=== PATIENT | male | born 1980 | race Caucasian/White ===

== ENCOUNTER 2017-01-20 19:22 | Emergency (ER) | payer SELFPAY ==
[2017-01-20] MEDS ORDERED: ONDANSETRON 4 MG TAB.RAPDIS PO ONE (20:01)
--- NOTE | 2017-01-20 20:15 | ERNOTE ---
Abdominal HPI - Narrative Date of Service: 01/20/17 - General Time Seen by Provider: 01/20/17 19:46 Source: patient Exam Limitations: no limitations - Immun/Allergies/Home Medications Immunizatons: IMMUNIZATION HX Immunizations Up to Date Yes Allergies/Adverse Reactions: Allergies aspirin Allergy (Intermediate, Verified 01/20/17 19:37) - History of Present Illness Narrative: Pt. comes in with c/o nausea and diarrhea for 16 hours. Pt. denies any abdominal pain, fevers, vomiting, intolerance of foods or fluids, SOB, CP, Alleviating or aggravating factors or prehospital treatment. Review of Systems - Review of Systems Constitutional: Present: no symptoms reported. Absent: recent illness, fever, chills, weakness, fatigue, malaise EYE: Present: no symptoms reported ENT: Present: no symptoms reported Respiratory: Present: no symptoms reported. Absent: shortness of breath, cough , wheezing Cardiology: Present: no symptoms reported. Absent: chest pain, palpitations, edema Gastrointestinal/Abdominal: Present: nausea, diarrhea. Absent: vomiting, constipation, abdominal pain, eating less, drinking less Genitourinary: Present: no symptoms reported Musculoskeletal: Present: no symptoms reported. Absent: back pain, neck pain, joint pain Skin: Present: no symptoms reported Neurological: Present: no symptoms reported. Absent: headache, dizziness/light- headedness, numbness, tingling All Other Systems: All systems neg except as marked - Patient's Past Medical History Patient History - Medical: GERD Patient History - Cardiac/Respiratory: No pertinent hx Patient History - Cancer: No Hx of Cancer Patient History - Surgical Procedures: Other Patient History - Other: None - Social History Living Situations: spouse Abuse History: No History of abuse Psych History: No pertinent hx Smoking Status: Former smoker Have you smoked in the past 12 months: Yes - e-cigs Do you dip or chew tobacco: No Patient requests Smoking Cessation Consult: No Initiate information on Smoking Cessation: No Alcohol Use: occasionally Drug Use: none - Immunizations Immunizations Up to Date: Yes Physical Exam - Physical Exam General Appearance: Present: wd/wn, alert, no apparent distress Eye Exam: Normal inspection: bilateral, PERRL: bilateral, EOMI: bilateral Ears, Nose, Throat: Present: normal ENT inspection Neck: Present: normal inspection Respiratory: Present: no respiratory distress, normal breath sounds, no accessory muscle use, chest nontender, lungs clear Cardiovascular/Chest: Present: regular rate, rhythm, no murmur, normal peripheral pulses Gastrointestinal/Abdominal: Present: normal bowel sounds, nontender, nondistended, soft, no organomegaly Back Exam: Present: normal inspection Extremity Exam: Present: normal inspection, non-tender, normal range of motion, no edema Neurological Exam: Present: alert, oriented, normal mood/affect, no motor/ sensory deficits. Absent: agricultural technical officer II-XII nml as tested, normal cerebellar test Skin Exam: Present: normal color, warm/dry. Absent: pallor, skin rash ED Progress - Vital Signs Patient's Vital Signs:: I have reviewed the patient's vital signs. Vital Signs: Vital Signs 01/20/17 19:29 Temperature 36.8 C Pulse Rate 75 Respiratory 14 Rate Blood Pressure 123/75 O2 Sat by Pulse 97 Oximetry Departure - Departure Clinical Impression: Viral gastroenteritis Disposition: Home self-care Condition: Good Instructions: Viral Gastroenteritis, Adult, [id number] Additional Instructions: Please follow up with primary provider in 2-3 days if no improvement.
[2017-01-20] MEDS ORDERED: ONDANSETRON HCL 8 MG TABLET ONE (20:17)
[2017-01-20] MEDS ORDERED: ONDANSETRON 4 MG TAB.RAPDIS ONE (20:18)
[2017-01-20 20:23] VITALS: BP 119/81
== END 2017-01-20 20:26 | disposition home or self-care (01) ==
LOC: ER 19:22
DX: A08.4 Viral intestinal infection, unspecified (principal)

== ENCOUNTER 2017-03-31 16:01 | Emergency (ER) | payer SELFPAY ==
[2017-03-31 16:11] VITALS: BP 142/79
--- NOTE | 2017-03-31 16:30 | ERNOTE ---
Medical Problem HPI - Narrative Date of Service: 03/31/17 - General Chief Complaint: Nausea/Vomiting Time Seen by Provider: 03/31/17 16:20 Source: patient, RN notes reviewed Exam Limitations: no limitations - Immun/Allergies/Home Medications Immunizations: IMMUNIZATION HX Immunizations Up to Date Yes History of Influenza Vaccine No Hx Pneumococcal Vaccination No Allergies/Adverse Reactions: Allergies aspirin Allergy (Intermediate, Verified 03/31/17 16:11) Home Medications: HOME MEDICATIONS NK [No Home Medication] 03/31/17 [Last Taken Unknown] - History of Present History Narrative: Aretha is a 36-year-old male ambulatory to the emergency department for nausea that began 2 days ago. He reports feeling like he could vomit but has not actually done so. He states that he is able to tolerate oral intake. He also reports feeling as though he is going to have diarrhea, but has not. He passed a formed stool today. He denies any sick contacts. He reports that he needs a work excuse because he works at [employer] around food. Review of Systems - Review of Systems Constitutional: Present: fatigue, malaise. Absent: fever, chills EYE: Present: no symptoms reported ENT: Present: no symptoms reported Respiratory: Absent: shortness of breath, cough Cardiology: Absent: chest pain, syncope Gastrointestinal/Abdominal: Present: nausea. Absent: vomiting, diarrhea, abdominal pain, eating less, drinking less Genitourinary: Absent: dysuria, hematuria, decreased urinary output Musculoskeletal: Absent: muscle pain, joint pain Skin: Absent: rash, lesions Neurological: Absent: headache, dizziness/light-headedness Endocrine: Present: no symptoms reported Hematologic/Lymphatic: Present: no symptoms reported Psych: Present: no symptoms reported - Patient's Past Medical History Patient History - Medical: GERD Patient History - Cardiac/Respiratory: No pertinent hx Patient History - Cancer: No Hx of Cancer Patient History - Surgical Procedures: Other Patient History - Other: None - Social History Living Situations: home Abuse History: No History of abuse Psych History: No pertinent hx Smoking Status: Smoker, status unknown Have you smoked in the past 12 months: No Do you dip or chew tobacco: No Alcohol Use: occasionally Drug Use: none - Immunizations Immunizations Up to Date: Yes Hx Pneumococcal Vaccination: No History of Influenza Vaccine: No Physical Exam - Physical Exam General Appearance: Present: wd/wn, alert, no apparent distress, other - Poor hygiene Neck: Present: normal inspection, nontender, supple Respiratory: Present: no respiratory distress, normal breath sounds, no accessory muscle use, lungs clear Cardiovascular/Chest: Present: regular rate, rhythm, no murmur, normal peripheral pulses Gastrointestinal/Abdominal: Present: normal bowel sounds, nontender, nondistended, soft Extremity Exam: Present: normal inspection, normal range of motion Neurological Exam: Present: alert, oriented, normal mood/affect, no motor/ sensory deficits Skin Exam: Present: normal color, warm/dry ED Progress - Vital Signs Patient's Vital Signs:: I have reviewed the patient's vital signs. Vital Signs: Vital Signs 03/31/17 16:06 Temperature 37.1 C Pulse Rate 83 Respiratory 16 Rate Blood Pressure 142/79 O2 Sat by Pulse 98 Oximetry - Progress/Reassessment Chief Complaint: Nausea/Vomiting Progress:: Unchanged Plan - Plan Plan: Patient is not having any pain and he is tolerating oral intake without incident. Workup deferred for now. Discussed returning if symptoms worsen. Patient in agreement with plan. Departure - Departure Clinical Impression: Nausea alone Disposition: Home self-care Condition: Stable Instructions: Nausea, Adult, [id number], Form - Excuse from Work, School, or Physical Activity
== END 2017-03-31 16:33 | disposition home or self-care (01) ==
LOC: ER 16:01
DX: R11.0 Nausea (principal)

== ENCOUNTER 2017-04-09 18:17 | Emergency (ER) | payer SELFPAY ==
--- NOTE | 2017-04-09 20:33 | ERNOTE ---
Lower Extremity HPI - Narrative Date of Service: 04/09/17 - General Lower Extremities Pain: foot: right Time Seen by Provider: 04/09/17 20:07 Source: patient, RN notes reviewed Exam Limitations: no limitations - Immun/Allergies/Home Medications Immunizations: IMMUNIZATION HX Immunizations Up to Date Yes History of Influenza Vaccine No Hx Pneumococcal Vaccination No Allergies/Adverse Reactions: Allergies Allergy/AdvReac Type Severity Reaction Status Date / Time aspirin Allergy Intermediate Verified 04/09/17 18:51 Home Medications: HOME MEDICATIONS NK [No Home Medication] 03/31/17 [Last Taken Unknown] - History of Present Illness Narrative: 36 y/o male ambulatory to the ED for a foot injury that occurred yesterday morning. He stepped wrong and twisted his foot while going down his steps on his way to work. He went to work, but was then sent home because he was having trouble walking. He reports that he knows his foot is not broken and will be fine, but he has to have a work excuse. He has not been taking anything for pain. Date (Duration): 04/08/17 Time (Timing): 05:30 Location of Incident: home Method of Injury: Reports: twisted Associated Symptoms: Denies: unable to bear weight, snapping, popping sensation Other Injuries: Reports: none Subsequent Symptoms: Denies: sensory loss, numbness, motor loss Prior Treament: Reports: recently seen. Denies: similar symptoms before Review of Systems - Review of Systems Constitutional: Present: recent illness. Absent: fever, chills, malaise EYE: Present: no symptoms reported ENT: Present: no symptoms reported Respiratory: Present: no symptoms reported Cardiology: Absent: chest pain, syncope, edema Gastrointestinal/Abdominal: Present: no symptoms reported Genitourinary: Present: no symptoms reported Musculoskeletal: Absent: joint pain, joint swelling Skin: Absent: rash, lesions, lumps, change in color Neurological: Absent: weakness, numbness, tingling Endocrine: Present: no symptoms reported Hematologic/Lymphatic: Absent: easy bruising, easy bleeding Psych: Present: no symptoms reported - Patient's Past Medical History Patient History - Medical: GERD, Other Patient History - Cardiac/Respiratory: No pertinent hx Patient History - Cancer: No Hx of Cancer Patient History - Surgical Procedures: Other Patient History - Other: None - Social History Living Situations: spouse Abuse History: No History of abuse Psych History: No pertinent hx Smoking Status: Current every day smoker Have you smoked in the past 12 months: Yes - vapor cig Do you dip or chew tobacco: No Alcohol Use: occasionally Drug Use: none - Immunizations Immunizations Up to Date: Yes Hx Pneumococcal Vaccination: No History of Influenza Vaccine: No Physical Exam - Physical Exam General Appearance: Present: wd/wn, alert, no apparent distress, other - Disheveled Respiratory: Present: no respiratory distress, no accessory muscle use Cardiovascular/Chest: Present: normal peripheral pulses Peripheral Pulses: N=norm/S=strong/W=weak/B=bound/A=absent: Dorsalis-pedis (R): Strong, Dorsalis-pedis (L): Strong Extremity Exam: Present: normal range of motion, no edema, other - Tenderness with palpation of right lateral foot, no ecchymosis, no deformity, no edema. Absent: pedal edema, joint redness, joint swelling Neurological Exam: Present: alert, oriented, normal mood/affect, no motor/ sensory deficits Skin Exam: Present: normal color, warm/dry ED Progress - Vital Signs Patient's Vital Signs:: I have reviewed the patient's vital signs. Vital Signs: Vital Signs 04/09/17 04/09/17 18:45 19:31 Temperature 37.0 C 36.9 C Pulse Rate 84 75 Respiratory 16 16 Rate Blood Pressure 132/75 122/74 O2 Sat by Pulse 99 99 Oximetry - Progress/Reassessment Chief Complaint: Foot Injury/Pain Progress:: Unchanged Plan - Plan Plan: MARIANA wrap applied to right foot and work excuse given Departure Clinical Impression: Right foot sprain Qualifiers: Encounter type: initial encounter Qualified Code(s): S93.601A - Unspecified sprain of right foot, initial encounter - Departure Disposition: Home self-care Condition: Good Instructions: Foot Sprain, Form - Excuse from Work, School, or Physical Activity
[2017-04-09 21:17] VITALS: BP 139/72
== END 2017-04-09 20:30 | disposition home or self-care (01) ==
LOC: ER 18:17
DX: S93.601A Unspecified sprain of right foot, initial encounter (principal); F17.290 Nicotine dependence, other tobacco product, uncomplicated; X50.1XXA Overexertion from prolonged static or awkward postures, initial encounter; Y93.01 Activity, walking, marching and hiking

== ENCOUNTER 2017-05-07 13:15 | Emergency (ER) | payer MEDICAID ==
[2017-05-07 13:23] VITALS: BP 142/80
--- NOTE | 2017-05-07 14:33 | ERNOTE ---
Back Pain ER HPI Date of Service: 05/07/17 Presenting Symptoms: injury/pain to back Time Seen by Provider: 05/07/17 14:03 Source: patient Exam Limitations: no limitations Immunizations: IMMUNIZATION HX Immunizations Up to Date Yes History of Influenza Vaccine No Hx Pneumococcal Vaccination No Allergies/Adverse Reactions: Allergies aspirin Allergy (Intermediate, Verified 05/07/17 13:23) Home Medications: HOME MEDICATIONS Cyclobenzaprine HCl [Flexeril] 10 mg PO TID PRN #30 tab 05/07/17 [Last Taken Unknown] Ibuprofen [Motrin] 800 mg PO .Q8H PRN #30 tablet 05/07/17 [Last Taken Unknown] - Pain Score Pain Score #1 Pain Score: 5 Narrative: 36yo, M, presents to ER for evaluation of back pain. Notes the back pain started approx 5-7 days ago, while bent over attempting to repair a hole in his tire and while replacing the tire on his car. Describes pain as stabbing pain in his mid back that radiates to a "burning pain" to his lower back. Denies any numbness or tingling, or loss of bowel or bladder. Does report dx of "multiple compression fractures" to back last year. Date (Duration): 05/03/17 Timing: Reports: constant Location of pain: Reports: mid back Activities at Onset: Reports: activity Possible Precipitating Factor: Reports: turning/bending Modifying Factors - (Improves): Reports: other - sidelying position Modifying Factors - (Worsens): Reports: other - standing, prone position Associated Symptoms: Denies: fever/chills, constipation/incontinence, nausea/ vomiting, problems urinating, difficulty walking, lightheadedness, numbess/ weakness in legs Review of Systems - Review of Systems Constitutional: Absent: fever, chills, fatigue, malaise Gastrointestinal/Abdominal: Absent: nausea, vomiting, diarrhea, abdominal pain Genitourinary: Absent: frequency, pain, dysuria, hematuria Musculoskeletal: Present: back pain, muscle stiffness - mid-lower back Skin: Absent: rash Neurological: Absent: weakness, numbness, tingling - Patient's Past Medical History Patient History - Medical: GERD, Other Patient History - Cardiac/Respiratory: Pneumonia Patient History - Cancer: No Hx of Cancer Patient History - Surgical Procedures: Other Patient History - Other: None - Social History Living Situations: home Abuse History: No History of abuse Psych History: No pertinent hx Smoking Status: Current every day smoker Alcohol Use: occasionally Drug Use: none - Immunizations Immunizations Up to Date: Yes Hx Pneumococcal Vaccination: No History of Influenza Vaccine: No Physical Exam - Physical Exam General Appearance: Present: wd/wn, alert, no apparent distress Neck: Present: normal inspection, nontender Respiratory: Present: no respiratory distress, normal breath sounds. Absent: rales, rhonchi, wheezing Cardiovascular/Chest: Present: regular rate, rhythm, no murmur Back Exam: Present: normal inspection, no vertebral tenderness, decreased range of motion - slightly decreased with forward bending and lateral movements due to pain, other - tenderness along thoracic and lumbar muscle region. Absent: CVA tenderness (R), CVA tenderness (L) Extremity Exam: Present: normal inspection, normal range of motion Neurological Exam: Present: alert, oriented, no motor/sensory deficits. Absent : motor weakness - strenght 5/5 x4 ext Skin Exam: Present: normal color, warm/dry ED Progress - Vital Signs Patient's Vital Signs:: I have reviewed the patient's vital signs. Vital Signs: Vital Signs 05/07/17 13:19 Temperature 36.8 C Pulse Rate 69 Respiratory 17 Rate Blood Pressure 142/80 O2 Sat by Pulse 97 Oximetry - X-Ray X-Ray #1 X-Ray: lumbosacral Interpretation: Reviewed by me X-ray Comments: no acute osseous abnormalities noted - Progress/Reassessment Chief Complaint: Back Pain Departure Clinical Impression: Lumbar strain Qualifiers: Encounter type: initial encounter Qualified Code(s): S39.012A - Strain of muscle, fascia and tendon of lower back, initial encounter - Departure Disposition: Home self-care Condition: Good Instructions: Back Pain, Adult, [id number], Back Exercises Additional Instructions: Apply ice or heat to back as needed for pain Limit activities that cause pain Begin back exercises in 2 days to help strengthen back muscles Follow up with your doctor if symptoms worsen or do not improve Prescriptions: Cyclobenzaprine HCl [Flexeril] 10 mg PO TID PRN #30 tab PRN Reason: Pain Ibuprofen [Motrin] 800 mg PO .Q8H PRN #30 tablet PRN Reason: Pain
== END 2017-05-07 14:57 | disposition home or self-care (01) ==
LOC: ER 13:15
DX: S39.012A Strain of muscle, fascia and tendon of lower back, initial encounter (principal); F17.200 Nicotine dependence, unspecified, uncomplicated; X50.0XXA Overexertion from strenuous movement or load, initial encounter; Y93.89 Activity, other specified; Y92.810 Car as the place of occurrence of the external cause